=== PATIENT | male | born 1955 | race Caucasian/White ===

== ENCOUNTER → 2023-05-31 10:01 | Outpatient (REF) | payer MEDICARE, SELFPAY ==
--- NOTE | 2023-05-31 10:03 | CA_ITS ---
Transthoracic Echocardiogram Patient (Last, First, Middle): Logan Cook, Gender: Male Date of : 1955 Age: 67 Procedure Date: 05/31/2023 Procedure Type: Transthoracic Echocardiogram Location: OP Height: 172.72 cm Weight: 81.19 kg BSA: 1.95 m2 Heart Rate: bpm BP: 124 / 70 mmHg Fire Alarm Inspector: LANDRY Referring MD: Lamont Sofia MD Symptoms: Palpitation Study Quality: Adequate ECG Rhythm: Sinus Conclusions: - The left ventricular systolic function is normal. The calculated ejection fraction is 60% by biplane method. - There is mild aortic valve regurgitation. Findings Left Ventricle Normal left ventricular cavity size. There is normal left ventricular wall thickness. The left ventricular systolic function is normal. The calculated ejection fraction is 60% by biplane method. There is no evidence of regional wall motion abnormalities. Diastolic function is normal for age. LV peak GLS -18.5%. Right Ventricle Normal right ventricular cavity size and systolic function. Atria Both atria are normal in size. Aortic Valve There is a normal trileaflet aortic valve. There is no aortic valve stenosis. There is mild aortic valve regurgitation. Mitral Valve The mitral valve appears normal. There is no mitral valve regurgitation. There is no mitral valve stenosis. Pulmonic Valve There is trace pulmonic valve regurgitation. Tricuspid Valve Normal tricuspid valve structure. There is trace tricuspid valve regurgitation. There is no evidence of pulmonary hypertension. Great Vessels The asc aorta is normal in size. Venous The inferior vena cava is normal in size and collapses greater than 50% with inspiration. Pericardium/Pleural There is no evidence of pericardial effusion. Prior Study Comparison No prior study available for comparison. Measurements 2D Linear Measurements IVSd: 1.00 0.6-0.9/0.6-1.0 cm LVIDd: 4.37 3.9-5.3/4.2-5.9 cm LVIDd Index: 2.24 2.4-3.2/2.2-3.1 cm/m2 LVIDs: 2.66 2.0-3.6 cm LVPWd: 0.92 0.7-1.1 cm LA Diam: 3.40 2.7-3.8/3.0-4.0 cm LAIDs Index: 1.74 1.5-2.3 cm/m2 LV Mass: 171.65 67-162/88-224 g LV Mass Index: 88.03 43-95/49-115 g/m2 LVOT Diam: 2.40 3.0+(-)1.3 cm 2D Systolic Function EF 4C: 58.40 >55% EF 2C: 62.70 >55% EF BiP: 59.50 >55% Mitral Valve MV Pk E: 0.40 MV PK A: 0.55 MV Decel Time: 331.00 E/A: 0.70 E'Lateral: 9.79 E'Medial: 6.20 E/E' Med: 6.50 E/E' Lat: 4.10 PHT: 97.00 MVA PHT: 2.27 Decel [place]: 1.22 Aortic Valve AoV Pk Darrel: 1.36 AoV Mn Darrel: 0.83 AoV VTI: 0.25 AoV Pk Grad: 7.00 Aov Mn Grad: 3.00 PHIL Cont.VTI: 3.56 LVOT LVOT Pk Darrel: 0.95 LVOT Mn Darrel: 0.58 LVOT VTI: 0.20 LVOT Pk Grad: 4.00 LVOT Mn Grad: 2.00 LVOT Diam: 2.40 LVOT Area: 4.52 Diastolic Function MV Pk E: 0.40 MV Pk A: 0.55 E/A: 0.70 E'Medial: 6.20 E/E' Med: 6.50 E' Laterial: 9.79 E/E' Lat: 4.10 Right Ventricle TAPSE (mm): 20.70 TVS' Darrel: 13.20 Tricuspid Valve TR Pk Darrel: 1.95 TR Pk Grad: 15.00 RA Press: 3.00 RVSP: 18.00 Great Vessels Aorta Sinus of Valsalva: 3.56 2.0-3.[address] [place]: 2.52 1.7-3.4 cm Ao Asc: 3.00 2.1-3.4 cm Updated in Other Vendor System with Status of Final Rajesh Bruce MD electronically signed on 06/01/2023 11:04:15 AM with status of Final
== END ==
LOC: HO.CARD 10:01
PROVIDERS: Visit Provider Internal Medicine Cardiovascular Disease
DX: R00.2 Palpitations (principal)
CPT/HCPCS: 93306; 93356

== ENCOUNTER → 2023-05-31 10:03 | Outpatient (BNV) | payer MEDICARE, SELFPAY | PROVIDERS: Visit Provider Internal Medicine | DX: I35.1 Nonrheumatic aortic (valve) insufficiency (principal) | CPT/HCPCS: 93306; 93356 ==

== ENCOUNTER 2024-06-13 09:44 | Outpatient (AMB) | payer MEDICARE, SELFPAY ==
--- NOTE | 2024-06-13 09:46 | MHC.OFFVIS ---
Vital Signs 06/13/24 09:58 Height 5 ft 8.5 in Weight 179 lb BMI 26.8 BP 126/60 Blood Pressure Location Rt brachial Position Sitting Pulse 56 Pulse Source Pulse Oximeter Pulse Oximetry (%) 98 Oxygen Delivery Method Room Air Intake Visit Reasons: colonoscopy screening Intake Note: NEW PATIENT for recall colo screening. Relevant FMHx. Last was ~ 7 years ago @ [facility] per pt. Chief Complaint; No GI concerns currently. Mother had colon cancer. 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 male with past medical history of dyslipidemia, palpitations, [place] is here today for pre colonoscopy screening.? Patient was sent to us by his PCP.? Last colonoscopy 7 years ago.? Patient denies any gastrointestinal symptoms in the past or at present.? Family history of CRC.? Patient's mother of colon cancer at age of 49. Denies history of difficulty with sedation or anesthesia in the past.? Negative for history of sleep apnea.? Denies any history of cardiac, renal, pulmonary, or hepatic disease.?? No history of infectious? diseases like hepatitis A, B, C, HIV or tuberculosis.? Patient is not on any anticoagulation [facility] Medical History (Updated 06/13/24 @ 10:22 by Sylvia Reese [facility]) Family history of colorectal cancer [place] (obstructive sleep apnea) Dyslipidemia Palpitations Surgical History History of colonoscopy H/O Achilles tendon repair Family History Mother Diabetes Colon cancer Father Myocardial infarct Social History Alcohol intake: unknown Patient Tobacco Use Status: Former Tobacco user Years Smoked: 30 Review of Systems Const Denies weight gain and Denies weight loss ENT Reports no additional complaints, Denies dysphagia and Denies odynophagia Card Reports no additional complaints Resp Reports no additional complaints GI Denies abdominal pain, Denies belching, Denies melena, Denies bloating, Denies change in bowel habits, Denies dysphagia, Denies excessive flatus, Denies dyspepsia, Denies heartburn, Denies diarrhea, Denies loose stools, Denies nausea, Denies odynophagia and Denies vomiting Reports no additional complaints Musc Reports no additional complaints Neuro Reports no additional complaints Psych Reports no additional complaints Endo Reports no additional complaints Physical Exam Const General: healthy appearing, no acute distress and well developed Nutritional Appearance: well nourished Orientation/consciousness: patient oriented x3 Resp Effort & Inspection: normal respiratory effort, able to speak in complete sentences, no tracheal deviation and symmetric chest movement Auscultation: clear to auscultation bilaterally Cardio Rate: regular rate GI Inspection: Yes normal to inspection and No distended Palpation (GI): Soft to palpation, not firm, nontender and No hepatosplenomegaly present Auscultation: normal bowel sounds General: Yes no CVA tenderness Back/Spine/Pelvis Back: no CVA tenderness Skin General skin exam: elasticity normal, turgor normal and dry skin Neuro General: patient oriented x3 Psych Appearance: grossly normal Mental Status: mental status grossly normal Assessment & Plan Assessment & Plan (1) Screen for colon cancer: Code(s): Z12.11 - Encounter for screening for malignant neoplasm of colon (2) Family history of colorectal cancer: Code(s): Z80.0 - Family history of malignant neoplasm of digestive organs Category: Medical Plan Patient denies any GI, cardiac or respiratory symptoms.? Denies any issues with anesthesia in the past.? History of sleep apnea uses CPAP. No history infectious diseases in the past or present.? Not on any anticoagulation therapy.? Family history of CRC.? Patient denies melena, hematochezia, unintentional weight loss or ribbon like stools.? Discussed at length the pre-procedure,? prep, diet & medications as well as what to expect prior, during and after the procedure.?? Stressed the importance of good bowel prep.? Recommended the use of Vaseline or Calmoseptine OTC & baby wipes with bowel movements to promote comfort.? ?Patient verbalizes understanding and agrees to plan of care.? He was given the opportunity to ask questions and all questions answered.? We will see him after the procedure.? Medications: New polyethylene glycol 3350 (Miralax) As directed by gastroenterology department at [facility] 238 grams PO ONCE 238 grams 0RF Z12.11 - Encounter for screening for malignant neoplasm of colon bisacodyl (Dulcolax (bisacodyl)) take 4 tabs at noon the day before your colonoscopy 20 mg (4 x 5 mg) PO ONCE 1 day 4 tabs 0RF Z12.11 - Encounter for screening for malignant neoplasm of colon Coding Level of Care Code New Pt Level 3 (71983) Diagnoses Screen for colon cancer Z12.11 Family history of colorectal cancer Z80.0 Time Spent (min) 40 Comment 40 minutes spent with patient and additional 10 minutes spent reviewing his records
[2024-06-13 09:58] VITALS: BP 126/60; PULSE 56; O2SAT 98; BMI 26.8
--- OUTSIDE RECORDS SUMMARY | 2024-06-13 11:11 | XMS_ITS | Clinical Summary ---
Author Organization [facility] Address [address] [place] [address] Care Team Providers Care Rubber Tile Floor Layer Name Role Phone Unavailable Primary Care Provider Unavailabl e Source Comments PLEASE NOTE, if this patient is a minor, it may be UNLAWFUL to discuss sensitive information that is contained in these records (such as FAMILY PLANNING, MENTAL HEALTH or SUBSTANCE ABUSE) with the minor patient's parent or other person without the patient's specific authorization.[facility] Allergies No known active allergies Encounters Date Type Department Care Team Description 03/27/2024 11:00 AM EST Office Visit [facility] [address] [place] [address] Krissy Wood Encounter for dental examination and cleaning with abnormal findings (Primary Dx); Caries of enamel (incipient); Bone loss; Stage 2 grade B generalized periodontitis per AAP/EFP 2017 classification 03/27/2024 Travel from Last 3 Months Social History Tobacco Use Types Packs/Day Years Used Date Smoking Tobacco: Former Cigarettes Smokeless Tobacco: Never Tobacco Cessation:Counseling Given: Not Answered Social Connections Answer Date Recorded Connectedness 0 01/04/2024 Financial Resource Strain Answer Date R ecorded Financial Resource Strain 0 2023 Stress Answer Date Recorded Stress 0 01/04/2024 Physical Activity Answer Date Recorded Physical Activity 0 01/04/2024 Food Insecurity Answer Date Recorded Food 0 01/04/2024 Transportation Needs Answer Date Record ed Transportation 0 01/04/2024 Housing Stability Answer Date Recorded Housing 0 01/04/2024 Safety and Environment Answer Date Justo rded Safety 0 01/04/2024 Utilities Answer Date Recorded Utilities 0 01/04/2024 Employment Answer Date Recorded Stress 0 01/04/2024 Sex and Gender Information Value Date Recorded Sex Assigned at Not on file Legal Sex Male 1:50 PM PDT Gender Identity Not on file Sexual Orientation Not on file Plan of Treatment Health Maintenance Due Date Last Done Comments Diabetes Screening 1955 Hepatitis C Screening 1955 Lipid Screening 1955 Tobacco Screening 1955 Hypertension Screening (#1) 08/16/1975 Imm-DTaP/Tdap/Td (1 - Tdap) 1976 CT Colonography 2002 Colonoscopy 2002 Colorectal Cancer Screening 2002 FIT/gFOBT 2002 Fecal DNA 2002 Flexible Sigmoidoscopy 2002 Imm-Pneumococcal 65+ (1 of 1 - PCV) 08/16/2007 Imm-Zoster, Recombinant (1 of 2) 08/16/2007 Abdominal Aortic Aneurysm Screening 2022 Falls Prevention 2022 [id number]-51 ( season) 2023 03/29/2023, 09/01/2021, 03/10/2021, Additional history exists Imm-Influenza (#1) 2023 Alcohol and Drug Screen 03/15/2024 Depression Annual Screen 03/15/2024 Dental BW 03/29/2025 03/27/2024 Dental Examination 03/29/2025 03/27/2024 Dental Perio Charting 03/29/2025 03/27/2024 Dental Prophy 03/29/2025 03/27/2024 Dental FMX/Pano 03/29/2029 03/27/2024 Procedures Procedure Name Priority Date/Time Associated Diagnosis Comments DENTAL CASE MANAGEMENT - MOTIVATIONAL INTV Routine 03/27/2024 11:00 AM EST Caries of enamel (incipient) Encounter for dental examination and cleaning with abnormal findings PROPHYLAXIS - ADULT Routine 03/27/2024 1 1:00 AM EST Caries of enamel (incipient) Encounter for dental examination and cleaning with abnormal findings INTRAORAL - COMP SERIES OF RADIOGRAPHIC IMAGES Routine 03/27/2024 11:00 AM EST Caries of enamel (incipient) Encounter for dental examination and cleaning with abnormal findings COMP ORAL EVALUATION - NEW/ESTABLISHED PATIENT Routine 03/27/2024 11:00 AM EST Caries of enamel (incipient) Encounter for dental examination and cleaning with abnormal findings CARIES RISK ASSESSMENT & DOC FINDING HIGH RISK Routine 03/27/2024 11:00 AM EST Caries of enamel (incipient) Encounter for dental examination and cleaning with abnormal findings NUTRITIONAL COUNSELING CONTROL OF DENTAL DISEASE Routine 03/27/2024 11:00 AM EST Caries of enamel (incipient) Encounter for dental examination and cleaning with abnormal findings ORAL HYGIENE INSTRUCTIONS Routine 03/27/2024 11:00 AM EST Caries of enamel (incipient) Encounter for dental examination and cleaning with abnormal findings ORAL CANCER SCREENING Routine 03/27/2024 11:00 AM EST Caries of enamel (incipient) Encounter for dental examination and cleaning with abnormal findings CASE PRESENTATION SUBS DTL & EXTENSIVE TX PLN Routine 03/27/2024 11:00 AM EST Encounter for dental examination and cleaning with abnormal findings 30,31,18,19 MANDIBULAR PRTL DENTURE - CAST METAL FRAMEWORK Routine 03/27/2024 12:00 AM EST 2,3,6,9,12,14,15 MAXILLARY PARTIAL DENTURE - CAST METAL FRAMEWORK Routine 03/27/2024 12:00 AM EST 28 B(V) COMPOSITE - WISDOM (NON BILLABLE) Routine 03/27/2024 12:00 AM EST 29 B(V) COMPOSITE - WISDOM (NON BILLABLE) Routine 03/27/2024 12:00 AM EST 17 O COMPOSITE - WISDOM (NON BILLABLE) Routine 03/27/2024 12:00 AM EST 20 B(V) COMPOSITE - WISDOM (NON BILLABLE) Routine 03/27/2024 12:00 AM EST 21 B(V) COMPOSITE - WISDOM (NON BILLABLE) Routine 03/27/2024 12:00 AM EST 13 B(V) COMPOSITE - WISDOM (NON BILLABLE) Routine 03/27/2024 12:00 AM EST 11 F(V) COMPOSITE - WISDOM (NON BILLABLE) Routine 03/27/2024 12:00 AM EST 10 M COMPOSITE - WISDOM (NON BILLABLE) Routine 03/27/2024 12:00 AM EST 8 MIFL COMPOSITE - WISDOM (NON BILLABLE) Routine 03/27/2024 12:00 AM EST 5 B(V) COMPOSITE - WISDOM (NON BILLABLE) Routine 03/27/2024 12:00 AM EST from Last 3 Months [facility]
== END 2024-06-13 10:22 | disposition home or self-care (01) ==
PROVIDERS: Visit Provider Nurse Practitioner Family
DX: Z01.818 Encounter for other preprocedural examination (principal); Z12.11 Encounter for screening for malignant neoplasm of colon; Z80.0 Family history of malignant neoplasm of digestive organs
CPT/HCPCS: 99024

== ENCOUNTER → 2024-06-13 09:44 | Outpatient (BNVA) | payer MEDICARE, SELFPAY | PROVIDERS: Visit Provider Nurse Practitioner Family | DX: Z01.818 Encounter for other preprocedural examination (principal); Z80.0 Family history of malignant neoplasm of digestive organs | CPT/HCPCS: 99212 ==

== ENCOUNTER 2024-07-20 10:15 | Day surgery (SDC) | payer MEDICARE, MEDICAID, SELFPAY ==
--- OUTSIDE RECORDS SUMMARY | 2024-07-04 13:22 | XMS_ITS | Clinical Summary ---
Author Organization [facility] Address [address] [place] [address] Care Team Providers Care Compliance Consultant Name Role Phone Unavailable Primary Care Provider Unavailabl e Source Comments PLEASE NOTE, if this patient is a minor, it may be UNLAWFUL to discuss sensitive information that is contained in these records (such as FAMILY PLANNING, MENTAL HEALTH or SUBSTANCE ABUSE) with the minor patient's parent or other person without the patient's specific authorization.[facility] Allergies No known active allergies Social History Tobacco Use Types Packs/Day Years [...] Aortic Aneurysm Screening 2022 Falls Prevention 2022 [id number]-[id number]-88 ( season) 2023 03/29/2023, 09/01/2021, 03/10/2021, Additional history exists Imm-Influenza (#1) 2023 Alcohol and Drug Screen 03/15/2024 Depression Annual Screen 03/15/2024 Dental BW 03/29/2025 03/27/2024 Dental Examination 03/29/2025 03/27/2024 Dental Perio Charting 03/29/2025 03/27/2024 Dental Prophy 03/29/2025 03/27/2024 Dental FMX/Pano 03/29/2029 03/27/2024 Procedures Procedure Name Priority Date/Time Associated Diagnosis Comments INTRAORAL - COMP SERIES OF RADIOGRAPHIC IMAGES [...] dental examination and cleaning with abnormal findings from Last 3 Months or Most Recently Relevant to Health Maintenance Insurance [employer] DENTAL
[2024-07-18 13:58] VITALS: BMI 26.8
--- NOTE | 2024-07-19 09:45 | HO.ANESPROP2 ---
HPI - Anesthesia Eval Consult details Narrative: 68yo M for Colonoscopy PMFSH Active Problems Active Problems: All Active Problems Family history of colorectal cancer (Acute) Past Medical History Medical History (Updated 06/13/24 @ 10:22 by AMANDA GonzalezFORM[facility] Family history of colorectal cancer [place] (obstructive sleep apnea) Dyslipidemia Palpitations Family History Family History Mother Diabetes Colon cancer Father Myocardial infarct Surgical History Surgical History History of colonoscopy H/O Achilles tendon repair Social History Social History Alcohol intake: unknown Patient Tobacco Use Status: Former Tobacco user Years Smoked: 30 Meds Allergies Allergy/AdvReac Type Severity Reaction Status Date / Time No Known Allergies Allergy Verified 06/13/24 09:46 Home Medications ?Medication ?Instructions ?Recorded ?Confirmed ?Last Taken ?Type atorvastatin 40 mg tablet 40 mg PO BEDTIME 06/09/24 07/18/24 Unknown History Exam Height,Weight and Vital Signs: Height 5 ft 8.5 in Weight 81.193 kg Assessment and Plan Assessment Anesthesia Assessment: Chart Reviewed
[2024-07-20 10:41] VITALS: BMI 27.1
[2024-07-20] MEDS: Lactated Ringers 1,000 ML 100 ML IVCONT (10:45)
[2024-07-20 10:47] VITALS: BP 136/79; PULSE 55; RESP 18; TEMP 36.7; O2SAT 99
--- NOTE | 2024-07-20 11:14 | P.CONAN_ITS ---
[facility] Active Problems Active Problems: All Active Problems Family history of colorectal cancer (Acute) Past Medical History Medical History Family history of colorectal cancer [place] (obstructive sleep apnea) Dyslipidemia Palpitations Functional capacity: independent ambulation Family History Family History Mother Diabetes Colon cancer Father Myocardial infarct Family history of problems with anesthesia: No Surgical History Surgical History History of colonoscopy H/O Achilles tendon repair History of Problems with Anesthesia: No Social History Social History Are you a primary care support representative to a significant other at home: No Do you presently have visiting nurse or other home services: No Alcohol intake: unknown Patient Tobacco Use Status: Former Tobacco user Years Smoked: 30 Have you been hit, kicked, punched, or otherwise hurt by someone within the past year? If so, by whom?: No Are you DNR?: No Advance Directives: No Advance Directives Information Provided: Yes Poor oral hygiene: Yes Meds Allergies Allergy/AdvReac Type Severity Reaction Status Date / Time No Known Allergies Allergy Verified 06/13/24 09:46 Active Medications: Current Medications Lactated Ringer's (Lr) 1,000 mls @ 100 mls/hr IVCONT .Q10H SEGUNDO Last Admin: 07/20/24 10:45 Dose: 100 mls/hr Home Medications ?Medication ?Instructions ?Recorded ?Confirmed ?Last Taken ?Type atorvastatin 40 mg tablet 40 mg PO BEDTIME 06/09/24 07/18/24 Unknown History Exam Height,Weight and Vital Signs: Height 5 ft 8.5 in Weight 82 kg Last Vital Signs Temp 98.1 F 07/20/24 10:47 Pulse 55 07/20/24 10:47 Resp 18 07/20/24 10:47 BP 136/79 07/20/24 10:47 Pulse Ox 99 07/20/24 10:47 O2 Del Method Room Air 07/20/24 10:47 Airway Mallampati Class: II TM Dist: >3cm Neck ROM: Full Heart: RRR Lungs: CTA Assessment and Plan Assessment Anesthesia Assessment: Anesthesia Plan Discussed Final Anesthetic Review Family History of Problems with Anesthesia: No History of Problems with Anesthesia: No NPO: Yes ASA Class: II Final Preanesthetic Review: Meds/Allgs Chart Reviewed, Consent Obtained/Reviewed and Anes Risks/Benef Reviewed Patient Risk: Low Procedure Risk: Low Anesthetic Plan Anesthetic Plan: MAC: Disposition: Standard PACU
--- NOTE | 2024-07-20 11:28 | P.HPSUR_ITS ---
Pre-Procedural Eval Section A - 24 Hr Update-Section A only Date of Service: 07/20/24 Section B - Complete if H&P > 30 days Chief Complaint: screening Relevant Family History (Specify if Yes): Yes Relevant Social History: None Present Medications: see Short Stay Collaborative assessment Medical History: Significant History (Family history of colorectal cancer [place] (obstructive sleep apnea) Dyslipidemia Palpitations) History of Previous Operations: Relevant previous surgery/procedure and date(s) ( History of colonoscopy H/O Achilles tendon repair) Allergies: Allergies Allergy/AdvReac Type Severity Reaction Status Date / Time No Known Allergies Allergy Verified 06/13/24 09:46 Review of Systems Sugical H&P ROS: Negative: Constitution, Cardiovascular, Respiratory, Neurological, Psychiatric, Hem-Onc, Allergic/Immunologic, Gastrointestinal, Genitourinary, Musculoskeletal, Integumentary, Endocrine and Eyes/Ears/Nose/Throat Exam Surgical H&P Exam: Normal: HEENT, Normal: Heart, Normal: Lungs, Normal: Ex tremities, Normal: Abdomen, Normal: Skin and Normal: Neurological Plan Diagnosis/Plan: Unchanged I have reviewed the history and physical and performed a pertinent physical examination on my patient. No changes have occurred unless specified. Time Spent With Patient Time: Total time managing care of this patient today ____ minutes.
--- NOTE | 2024-07-20 12:29 | P.OPN-COLO_ITS ---
Colonoscopy Operative Note Operative Note Date of Service: 07/20/24 Narrative: Operative Information Procedure Description: Colonoscopy Indication: screening, FH of CRC Anesthesia: MAC COLONOSCOPY Instrument: Olympus variable stiffness pediatric scope 190L Colonoscopy Monitoring: Vital signs and clinical assessment, continuous EKG monitoring, Pulse oximetry, Carbon Dioxide monitoring and blood pressure monitoring were done throughout the procedure. Colon withdrawal time was 7 minutes. Procedure: The patient was placed in the left lateral decubitis position and pre-procedure medications were administered. After a digital rectal examination of the ano-rectum, the video colonoscope was inserted into the rectum and advanced through the colon to the cecum/TI. The colonoscope was slowly withdrawn in a retrograde panoramic fashion and the colon mucosa was carefully examined including a retroflexed view of the rectum. Findings and interventions are described below. Procedure Difficulty: easy Findings: Terminal Ileum-normal Cecum:normal Rigth sided retroflexion- normal Ascending Colon: normal Transverse Colon -normal Descending Colon:normal Sigmoid Colon: normal Rectum: Retroflexion with small internal hemorrhoids seen, grade I Anorectum - normal Intervention: none Colon preparation: Industry Bowel Preparation Scale Right colon; 2 Transverse colon: 3 Left colon; 3 (0 = Unprepared colon segment with mucosa not seen due to solid stool that breanne ot be cleared. 1 = Portion of mucosa of the colon segment seen, but other areas of the colon segment not well seen due to staining, residual stool and/or opaque liquid. 2 = Minor amount of residual staining, small fragments of stool and/or opaque liquid, but mucosa of colon segment seen well. 3 = Entire mucosa of colon segment seen well with no residual staining, small fragments of stool or opaque liquid) Impression and Post Procedure Diagnosis: internal hemorrhoids Plan: High fiber diet leaflet Avoid straining at stool, epsom salts and sitz bath, anusol supps or cream Repeat Colonoscopy in 5 years due to FH of CRC or earlier if clinically indicated Above findings were reviewed with the patient and relevant handouts were provided if indicated.
[2024-07-20 12:35] VITALS: BP 99/65; PULSE 55; RESP 16; TEMP 36.1; O2SAT 97
[2024-07-20 12:50] VITALS: BP 102/69; PULSE 52; RESP 16; TEMP 36.3; O2SAT 100
== END 2024-07-20 13:14 | disposition home or self-care (01) ==
PROVIDERS: PCP Internal Medicine; Visit Provider Internal Medicine Gastroenterology
PROC: 0DJD8ZZ Inspection of Lower Intestinal Tract, Via Natural or Artificial Opening Endoscopic (ICD-10-PCS; CPT 45378; principal; 2024-07-20 13:00)
DX: Z12.11 Encounter for screening for malignant neoplasm of colon (principal); Z80.0 Family history of malignant neoplasm of digestive organs; G47.33 Obstructive sleep apnea (adult) (pediatric); K64.0 First degree hemorrhoids; E78.5 Hyperlipidemia, unspecified; R00.2 Palpitations; Z79.899 Other long term (current) drug therapy; Z99.89 Dependence on other enabling machines and devices; Z98.890 Other specified postprocedural states; Z87.891 Personal history of nicotine dependence
CPT/HCPCS: G0105; J2003; J2704

== ENCOUNTER → 2024-07-20 10:15 | Outpatient (BNV) | payer MEDICARE, MEDICAID, SELFPAY | PROVIDERS: PCP Internal Medicine; Visit Provider Internal Medicine Gastroenterology | DX: Z12.11 Encounter for screening for malignant neoplasm of colon (principal); Z80.0 Family history of malignant neoplasm of digestive organs; K64.0 First degree hemorrhoids | CPT/HCPCS: G0105 ==